=== PATIENT | female | born 1975 | race Caucasian/White ===

== ENCOUNTER 2017-03-29 10:57 | Emergency (ER) | payer OTHER ==
[~2017-03-29] VITALS: Ht 154.9 cm; Wt 94.3 kg
[~2017-03-29 10:57] MED LIST: AMLODIPINE BESY1 TAB PO; BACTRIM DS 8001 TA1 PO; BACTROBAN CREAM15 GM PO; CEPHALEXIN500 M1 PO; CLEOCIN150 MG PO; GOOD NEIGHBOR L10 MG PO; KEFLEX500 M1 PO; LOPRESSOR25 MG PO; LOSARTAN POTASS1 TA5 PO; NAPROSYN500 MG PO; NORCO 5-325 TA1 EACH PO; OMEPRAZOLE D/R20 MG PO; SIMVASTATIN20 MG PO; VITAMIN D50000 I3 PO; ZOFRAN ODT4 MG SL
[2017-03-29] MEDS ORDERED: FUROSEMIDE40 MG PO (11:14)
[2017-03-29] MEDS ORDERED: CITALOPRAM HYDR10 MG PO (11:14)
[2017-03-29] MEDS ORDERED: TRAMADOL HCL50 MG PO (11:15)
[2017-03-29] MEDS ORDERED: KEFLEX500 M1 PO (11:24)
[2017-03-29] MEDS ORDERED: BACTRIM DS 8001 TA1 PO (11:24)
[2017-03-29] MEDS ORDERED: NAPROSYN500 MG PO (11:24)
== END 2017-03-29 13:50 | disposition home or self-care (01) ==
LOC: ED 10:57
DX: L03.011 Cellulitis of right finger (principal); R03.0 Elevated blood-pressure reading, without diagnosis of hypertension; Z79.899 Other long term (current) drug therapy

== ENCOUNTER 2017-05-16 05:56 | Emergency (ER) | payer OTHER ==
[~2017-05-16] VITALS: Ht 157.4 cm; Wt 93.4 kg
[~2017-05-16 05:56] MED LIST changes: +CITALOPRAM HYDR10 MG PO; +FUROSEMIDE40 MG PO; +TRAMADOL HCL50 MG PO
[2017-05-16 06:26] LABS: BASO # 0.1 10*3/uL (0.0-0.1); BASO % 0.8 % (0.0-1.0); EOS # 0.2 10*3/uL (0.0-0.4); EOS % 1.4 % (1.0-4.0); HEMATOCRIT 38.3 % (37.0-47.0); HEMOGLOBIN 12.3 g/dl (12.0-16.0); IG # 0.1 10*3/uL (0.0-0.1); LYMPH # 2.2 10*3/uL (1.3-4.4); LYMPH % 18.3 % (27.0-41.0); MEAN CELL VOLUME 78.6 fl (81.0-99.0); MEAN CORPUSCULAR HGB 25.3 pg (27.0-31.0); MEAN CORPUSCULAR HGB CONC 32.1 g/dl (33.0-37.0); MEAN PLATELET VOLUME 10.3 fl (9.6-12.3); MONO # 0.7 10*3/uL (0.1-1.0); MONO % 6.2 % (3.0-9.0); NEUT # 8.6 10*3/uL (2.3-7.9); NEUT % 72.8 % (47.0-73.0); PLATELET COUNT AUTOMATED 404 10*3/uL (130-400); RED BLOOD COUNT 4.87 10*6/uL (4.10-5.10); RED CELL DISTRI WIDTH 13.7 % (0-14.5); WHITE BLOOD COUNT 11.8 10*3/uL (4.8-10.8)
[2017-05-16 06:47] LABS: BILIRUBIN NEGATIVE (NEGATIVE); BLOOD NEGATIVE (NEGATIVE); CLARITY SL CLOUDY (CLEAR); COLOR YELLOW (YELLOW); GLUCOSE NEGATIVE (NEGATIVE); KETONE NEGATIVE (NEGATIVE); LEUKO ESTERASE 1+ (NEGATIVE); NITRITE NEGATIVE (NEGATIVE); PROTEIN NEGATIVE (NEGATIVE); SPECIFIC GRAVITY 1.015 (1.005-1.030); UROBILINOGEN 0.2 E.U./dl (0.2-1.0)
[2017-05-16 06:48] LABS: ALBUMIN 3.6 gm/dl (3.1-4.5); ALKALINE PHOSPHATASE 96 U/L (45-117); BILIRUBIN, TOTAL 0.2 mg/dl (0.2-1.0); BUN 12 mg/dl (7-24); CARBON DIOXIDE 27 mmol/L (21-32); CHLORIDE 101 mmol/L (98-107); EST GLOM FILT AFRICAN AMERICAN > 60 ml/min; GLUCOSE 135 mg/dL (65-99); POTASSIUM 3.7 mmol/L (3.5-5.1); SGOT/AST 14 IU/L (3-35); SGPT/ALT 21 U/L (12-78); SODIUM 141 mmol/L (136-145); TOTAL PROTEIN 7.5 gm/dL (6.4-8.2)
[2017-05-16 06:55] LABS: WBC 0-2 wbc/hpf (0-5)
[2017-05-16] MEDS ORDERED: PRILOSEC20 M1 PO (07:34)
[2017-05-17 08:08] LABS: URINE REFLEX COMMENT YES (NO)
== END 2017-05-16 07:34 | disposition home or self-care (01) ==
LOC: ED 05:56
PROVIDERS: Emergency Medicine
DX: R10.13 Epigastric pain (principal); R11.10 Vomiting, unspecified; Z79.899 Other long term (current) drug therapy

== ENCOUNTER 2017-08-02 14:27 | Emergency (ER) | payer OTHER ==
[~2017-08-02] VITALS: Ht 157.4 cm; Wt 94.3 kg
[~2017-08-02 14:27] MED LIST changes: +PRILOSEC20 M1 PO
[2017-08-02] MEDS ORDERED: CLINDAMYCIN HC300 MG PO (15:20)
== END 2017-08-02 15:23 | disposition home or self-care (01) ==
LOC: ED 14:27
DX: L02.414 Cutaneous abscess of left upper limb (principal); Z79.899 Other long term (current) drug therapy

== ENCOUNTER 2017-09-05 08:12 | Inpatient (IN) | payer MEDICARE, OTHER ==
[~2017-09-05] VITALS: Ht 152.4 cm; Wt 94.0 kg
--- NOTE | ~2017-09-05 | DS ---
[place], [place] DISCHARGE SUMMARY NAME: JOSE RAFAEL MOODY [facility] #: [id number] UNIT #: [id number] ROOM: 503 DOCTOR: PERLITA AKHTAR MD BIRTHDATE: [birth year] DOS: 09/09/2017 DIAGNOSES: 1. Gallstone pancreatitis. 2. Status post cholecystectomy, stable postoperatively. 3. Benign hypertension. 4. Mixed hyperlipidemia. 5. Major depression, mild, recurrent. MEDICATIONS: The same on discharge, only new prescription given was Ceftin 250 mg twice a day for 5 days, amlodipine, loratadine, omeprazole, metoprolol, Lasix, citalopram, tramadol, hydroxyzine, losartan, lovastatin, sertraline, potassium. The home meds are being all continued. HOSPITAL COURSE: This patient is a 42-year-old. The patient is very well known to us, comes in with complaints of abdominal pain. Amylase and lipase were extremely high with elevated LFTs. CT of the abdomen and pelvis shows gallstones. The patient was placed on IV fluids, kept n.p.o., pain medications were ordered. Dr. Isaac and Dr. Morales were consulted. The patient's LFTs and her pancreatic enzyme levels have slowly come down and normalized. She was taken for cholecystectomy yesterday and the patient has done very well postoperatively. This morning, the patient is stable, is to eat a regular diet and plan is to discharge her to home. PERLITA AKHTAR MD CM:DISCHLISA [id number] PERLITA AKHTAR MD 09/09/17 1541 interface
--- NOTE | ~2017-09-05 | CON ---
[place], [place] REPORT OF CONSULTATION [id number] UNIT #: [id number] ROOM: 503 DOCTOR[facility] BIR[facility] [birth year] DOS: HISTORY OF PRESENT ILLNESS: A 42-year-old who has presented to Emergency Room with cross abdominal pain, nausea, vomiting and I was called for the patient expressing with an element of pancreatitis, abnormal LFTs with lipase of greater than 3000, elevation of GOT, GPT, alkaline phosphatase was noticed to be of AST of 300+, ALT of 500+, alkaline phosphatase 270+ and lipase 3900+ with a total bilirubin within normal limits. Beta hCG was negative. Electrolytes balanced. BUN and creatinine of 13 and 1.05. Glucose 181. CBC differential white blood cells 16.9, H and H of 13 and 43, platelet count 486. Sonogram of the gallbladder was done. Cholelithiasis and thickening of the gallbladder was confirmed. CT scan of the abdomen and evidence of acute pancreatitis was documented. No chronic management except for hypertension she tells me. PAST SURGICAL HISTORY: Denies any surgeries. ALLERGIES: TOBRAMYCIN. MEDICATIONS: Reviewed. FAMILY HISTORY: Noncontributory. SOCIAL HISTORY: She is ____ nonsmoker, nonalcohol consumer. REVIEW OF SYSTEMS: HEENT: Denies double vision, blurred vision. RESPIRATORY: Denies shortness of breath. CARDIOVASCULAR: Denies chest pain. DIGESTIVE SYSTEM: Cross abdominal pain. PHYSICAL EXAMINATION: VITAL SIGNS: Stable. HEENT: Head normocephalic, nontraumatic. Mouth and buccal mucosa benign. NECK: Supple, no thyromegaly, no cervical lymphadenopathy. CHEST: Symmetric anatomy, equal expansion. No wheeze, no rhonchi. HEART: Normal sinus rhythm, no gallop, no murmur. ABDOMEN: Obese, soft. No hepato-organomegaly. Cross abdominal pain. Bowel sounds present. EXTREMITIES: No cyanosis, no pedal edema. NEUROLOGIC: Alert, oriented to time, place, person. INTEGUMENT: Numerous tattoos. IMPRESSION: Gallstone pancreatitis, abnormal LFTs, normal size common duct and elevation of bilirubin. PLAN AND DISCUSSION: The patient requires IV hydration, pain management, n.p.o. status, organized for cholecystectomy possibly on Friday. OTHER ADJUNCTIVE DIAGNOSES: Gastritis and hypertension as dictated in past medical and surgical history. [place], [place] REPORT OF CONSULTATION NAME: JOSE RAFAEL MOODY UNIT #: [id number] ROOM: [facility] DOCTOR: AROLDO MANCILLA MD BIRTHDATE: [birth year] AROLDO MANCILLA MD CM:CONSTR:REPORT OF CONSULTATION 1344 09/05/17 2316 interface
--- NOTE | ~2017-09-05 | WRIGHTHP ---
[place], [place] PATIENT HISTORY AND PHYSICAL EXAM NAME: JOSE RAFAEL MOODY UNIT #: [id number] ROOM: [facility] DOCTOR: PERLITA AKHTAR MD BIRTHDATE: [birth year] DOS: 09/05/2017 HISTORY OF PRESENT ILLNESS: The patient is 42 years old. The patient is very well known to us, comes in with complaints of severe abdominal pain which started a day prior to this admission. The patient states that she has not had any alcohol to drink. Denies having any chest pains or palpitations, does not have any fever or chills. She has nausea and emesis associated with abdominal pain. PAST MEDICAL HISTORY: Significant for; 1. Benign hypertension. 2. Mixed hyperlipidemia. 3. Chronic back pain. 4. Major depression. MEDICATIONS: Amlodipine, citalopram, Lasix, losartan, omeprazole, metoprolol, simvastatin, tramadol. SOCIAL HISTORY: Nonsmoker, does not use any alcohol. PHYSICAL EXAMINATION: VITAL SIGNS: Graphic trend shows pressure 156/96, pulse of 78, respirations 18, temperature 98.8. LUNGS: Diminished breath sounds. No wheezes heard. HEART: Regular. ABDOMEN: Obese, soft, some diffuse tenderness. EXTREMITIES: Without any edema. LABORATORY DATA: White cell count 16.9 on admission, hemoglobin 13.4, hematocrit 42.9, platelets 486. Comprehensive glucose 181, BUN 13, creatinine 1.05, gallbladder screening shows cholelithiasis with wall thickening and diffuse hepatic steatosis. CT of the abdomen and pelvis, acute pancreatitis, and duodenitis, some streaky fat around the mesenteric fat, would be reactive change from the pancreatitis. Amylase was unknown. Lipase was 3956. Liver enzymes; SGOT 333, SGPT 555. ASSESSMENT AND PLAN: 1. Acute pancreatitis, possibly from gallstone. Consultation with Surgery and GI has been obtained. The patient gets IV fluids, n.p.o. status except Dr. Isaac has ordered some clear liquids which I will continue. 2. Benign hypertension. Pressures on the high side, possibly from the n.p.o. status, we will restart some of antihypertensives. [place], [place] PATIENT HISTORY AND PHYSICAL EXAM NAME: JOSE RAFAEL MODOY UNIT #: [id number] ROOM: [facility] DOCTOR: PERLITA AKHTAR MD BIRTHDATE: [birth year] PERLITA AKHTAR MD CM:HISPHYS:PATIENT HISTORY AND PHYSICAL EXAMINATION [phone] PERLITA AKHTAR MD 09/06/17 1159 interface
--- NOTE | ~2017-09-05 | PR ---
[address], [place] PROGRESS NOTE [id number] UNIT #: [id number] ROOM: 503 DOCTOR: PERLITA AKHTAR MD BIRTHDATE: [birth year] DOS: 09/08/2017 SUBJECTIVE: The patient is getting ready to go for her cholecystectomy. She feels good and does not have any complaints. OBJECTIVE: GENERAL: She is awake and alert and oriented. VITAL SIGNS: Blood pressure 132/70, pulse of 86, respirations 14, she is afebrile. LUNGS: Diminished breath sounds, clear. HEART: Regular. ABDOMEN: Obese, soft, nontender. EXTREMITIES: Without any edema. ASSESSMENT AND PLAN: 1. Acute gallstone pancreatitis, clinically improved. Patient will have a cholecystectomy today. 2. Benign hypertension, controlled. PERLITA AKHTAR MD CM:PNTRANS [id number] PERLITA AKHTAR MD 09/09/17 0056 interface
--- NOTE | ~2017-09-05 | PR ---
[place], [place] PROGRESS NOTE NAME: JOSE RAFAEL MOODY [facility] #: [id number] UNIT #: [id number] ROOM: 503 DOCTOR: PERLITA AKHTAR MD BIRTHDATE: [birth year] DOS: SUBJECTIVE: The patient seems okay, does not have any complaints today. OBJECTIVE: VITAL SIGNS: Blood pressure is 138/64, pulse of 72, respirations 18, temperature 98.6. LUNGS: Clear. HEART: Regular. ABDOMEN: Obese, soft, minimal diffuse tenderness. EXTREMITIES: Without any edema. LABORATORY DATA: This morning shows WBC count is 17.9, it came down from 20.2. Liver enzymes have come down. Amylase has normalized. Lipase is down to 675. ASSESSMENT AND PLAN: 1. Gallstone pancreatitis, on IV fluids and n.p.o. status. Dr. Isaac and Dr. Morales are seeing the patient 2. Benign hypertension, controlled. Continue pain meds and IV fluids. Repeat labs will be ordered for tomorrow. Hopefully will undergo cholecystectomy soon. PERLITA AKHTAR MD CM:PNTRANS [id number] PERLITA AKHTAR MD 09/07/17 1525 interface
--- NOTE | ~2017-09-05 | PR ---
[place], [place] PROGRESS NOTE NAME: JOSE RAFAEL MOODY [facility] #: [id number] UNIT #: [id number] ROOM: 503 DOCTOR: PERLITA AKHTAR MD BIRTHDATE: [birth year] DOS: SUBJECTIVE: The patient is doing fine without any complaints. Denies any chest pains, palpitations or shortness of breath. PHYSICAL EXAMINATION: GENERAL: The patient is awake and alert and oriented. LUNGS: Diminished breath sounds. HEART: Regular. ABDOMEN: Obese, soft with recent lesions from laparoscopic cholecystectomy looking intact and not infected. EXTREMITIES: Without any edema. ASSESSMENT AND PLAN: 1. Gallstone pancreatitis, status post cholecystectomy. Postoperatively stable without any new problems. 2. Benign hypertension, controlled. The plan is to discharge her to home today. PERLITA AKHTAR MD CM:PNTRANS [phone] PERLITA AKHTAR MD 09/09/17 1217 interface
[~2017-09-05 08:12] MED LIST changes: +CLINDAMYCIN HC300 MG PO
[2017-09-05 08:19] VITALS: BP 161/106
[2017-09-05 08:47] LABS: HEMATOCRIT 42.9 % (37.0-47.0); HEMOGLOBIN 13.4 g/dl (12.0-16.0); MEAN CELL VOLUME 76.1 fl (81.0-99.0); MEAN CORPUSCULAR HGB 23.8 pg (27.0-31.0); MEAN CORPUSCULAR HGB CONC 31.2 g/dl (33.0-37.0); MEAN PLATELET VOLUME 10.6 fl (9.6-12.3); PLATELET COUNT AUTOMATED 486 10*3/uL (130-400); RED BLOOD COUNT 5.64 10*6/uL (4.10-5.10); RED CELL DISTRI WIDTH 15.3 % (0-14.5); WHITE BLOOD COUNT 16.9 10*3/uL (4.8-10.8)
[2017-09-05 09:00] LABS: ALBUMIN 3.7 gm/dl (3.1-4.5); ALKALINE PHOSPHATASE 276 U/L (45-117); BUN 13 mg/dl (7-24); CHLORIDE 100 mmol/L (98-107); CREATININE 1.05 mg/dL (0.55-1.02); POTASSIUM 3.9 mmol/L (3.5-5.1); SGOT/AST 333 IU/L (3-35); SGPT/ALT 555 U/L (12-78); SODIUM 136 mmol/L (136-145)
[2017-09-05 09:02] LABS: LIPASE 3956 U/L (73-393)
[2017-09-05 09:05] LABS: PLATELET SUFFICIENCY HIGH (NORMAL); TOTAL CELLS COUNTED 100 #CELLS
--- NOTE | 2017-09-05 10:10 | NUR ---
2 RNS' HAVE BEEN UNABLE TO INSERT AN IV INTO THIS PT. DR ELLISON IS AWARE. PT HAS REFUSED A CENTRAL LINE. DR ELLISON HAS ORDERED A PICC LINE. PT WILL BE ADMITTED. REPORT TO BE CALLED. THERE HAS BEEN NO EMESIS. PT WILL BE ADMITTED. REPORT TO BE CALLED. KRYSTA BARROSO
--- NOTE | 2017-09-05 11:40 | NUR ---
Time: 1139 A 42 year old female admitted to 5E under services of DR. GIOVANA POLO,PERLITA. Pt. arrived via stretcher from ER. Chief complaint: abdominal pain. ANGEL ROCHA
[2017-09-05 11:54] VITALS: BP 160/98
--- NOTE | 2017-09-05 12:08 | NUR ---
CONSULT CALLED TO DR. MANCILLA, ORDER FOR LABS TOMORROW. HE WILL SEE PATIENT TODAY
--- NOTE | 2017-09-05 12:17 | NUR ---
DR. WILEY HERE TO SEE PATIENT FOR NEW CONSULT. HE DISCUSSED PATIENT WITH DR. MANCILLA
[2017-09-05 16:31] VITALS: BP 154/101
--- NOTE | 2017-09-05 18:08 | NUR ---
pt wants flu shot this admission however does not want it today. placed order for flu shot tomorrow
[2017-09-05 19:00] VITALS: BP 154/90
--- NOTE | 2017-09-05 20:00 | NUR ---
SLEEPING. RESPIRATIONS EASY. IV FLUIDS MAINTAINED
[2017-09-05 20:22] VITALS: BP 142/88; BP 149/93
--- NOTE | 2017-09-05 20:38 | NUR ---
REQUESTED AND RECEIVED DILAUDID AND ZOFRAN IV PER PRN ORDER FOR C/O ABD PAIN RATING A 9 AND NAUSEA. CALL LIGHT WITHIN REACH. WILL MONITOR FOR EFFECTIVENESS
--- NOTE | 2017-09-05 22:00 | NUR ---
EARLIER MEDS EFFECTIVE. RESTING WITH EYES CLOSED. RESPIRATIONS EASY. IV FLUIDS MAINTAINED
[2017-09-06] VITALS: BP 156/96
--- NOTE | 2017-09-06 04:25 | NUR ---
PATIENT MEDICATED SLOWLY WITH DILAUDID AND ZOFRAN PER PRN ORDER FOR C/O PAIN AND NAUSEA. RATED PAIN A 7/10 WITH 10 BEING THE WORST. SEE EMAR. REINFORCED USE OF CALL LIGHT.
[2017-09-06 06:23] LABS: BASO # 0.1 10*3/uL (0.0-0.1); BASO % 0.3 % (0.0-1.0); EOS % 0.1 % (1.0-4.0); HEMATOCRIT 41.5 % (37.0-47.0); HEMOGLOBIN 13.1 g/dl (12.0-16.0); LYMPH # 1.4 10*3/uL (1.3-4.4); MEAN CELL VOLUME 77.6 fl (81.0-99.0); MEAN CORPUSCULAR HGB 24.5 pg (27.0-31.0); MEAN CORPUSCULAR HGB CONC 31.6 g/dl (33.0-37.0); MEAN PLATELET VOLUME 10.8 fl (9.6-12.3); MONO # 1.3 10*3/uL (0.1-1.0); MONO % 6.5 % (3.0-9.0); NEUT # 17.3 10*3/uL (2.3-7.9); NEUT % 85.5 % (47.0-73.0); PLATELET COUNT AUTOMATED 402 10*3/uL (130-400); RED BLOOD COUNT 5.35 10*6/uL (4.10-5.10); RED CELL DISTRI WIDTH 15.7 % (0-14.5); WHITE BLOOD COUNT 20.2 10*3/uL (4.8-10.8)
[2017-09-06 06:32] LABS: ALBUMIN 3.1 gm/dl (3.1-4.5); ALKALINE PHOSPHATASE 231 U/L (45-117); BUN 10 mg/dl (7-24); CHLORIDE 101 mmol/L (98-107); CREATININE 0.89 mg/dL (0.55-1.02); POTASSIUM 3.8 mmol/L (3.5-5.1); SGOT/AST 126 IU/L (3-35); SGPT/ALT 339 U/L (12-78); SODIUM 135 mmol/L (136-145)
[2017-09-06 06:46] LABS: LIPASE 1808 U/L (73-393)
[2017-09-06 08:00] VITALS: BP 164/66
--- NOTE | 2017-09-06 08:00 | NUR ---
PT C/O PAIN. DILAUDID NOT DUE YET. SPOKE TO DR AKHTAR AND SHE STATED THAT INCREASING HER PAIN MEDS IS NOT NECESSARY AT THIS TIME.
--- NOTE | 2017-09-06 10:05 | NUR ---
DR MANCILLA CALLED WITH LAB RESULTS REQUESTED. NEW ORDER FOR ZOSYN 3.375MG IV QID AND CBC AND LFT'S IN AM. ALSO TO NOTIFY SURGEON THAT IS ON ABOUT THE LAB RESULTS.
--- NOTE | 2017-09-06 11:58 | NUR ---
IV DILAUDID GIVEN FOR C/O PAIN OF 8/10 TO ABDOMEN. IV ZOFRAN GIVEN FOR C/O NAUSEA. WILL CONT TO MONITOR. CALL LIGHT IN REACH.
--- NOTE | 2017-09-06 12:58 | NUR ---
DILAUDID AND ZOFRAN EFF AT THIS TIME. WILL CONT TO MONITOR. CALL LIGHT IN REACH.
[2017-09-06 13:00] VITALS: BP 144/92
--- NOTE | 2017-09-06 13:46 | NUR ---
NO CALLBACK RECEIVED BY DR MANCILLA OF YET. PER DR EDWARDS REQUEST CALL PLACED TO DR RAIN TO ASK FOR DIET ADVANCEMENT. DR RAIN WAS READ THE RESULTS OF FLAT PLATE AND LABS. HE DID GIVE NEW ORDERS FOR CLEAR LIQUID DIET.
--- NOTE | 2017-09-06 13:46 | NUR ---
PT DR RAIN SINCE DR MANCILLA ADDED ZOSYN THEN THE MEFOXIN CAN BE D/C'D. ALSO UPDATED HIM ON LAB RESULTS.
[2017-09-06 16:00] VITALS: BP 136/85
--- NOTE | 2017-09-06 17:49 | NUR ---
PT GIVEN IV DILAUDID FOR C/O PAIN OF 8/10 AND IV ZOFRAN FOR C/O NAUSEA. WILL CONT TO MONITOR. CALL LIGHT IN REACH.
--- NOTE | 2017-09-06 18:49 | NUR ---
IV DILAUDID AND ZOFRAN EFF AT THIS TIME. WILL CONT TO MONITOR. CALL LIGHT IN REACH.
[2017-09-06 20:00] VITALS: BP 134/84
--- NOTE | 2017-09-06 20:00 | NUR ---
PATIENT LYING IN BED ON LEFT SIDE. ALERT AND ORIENTED. NO COMPLAINTS VOICED AT THIS TIME. LUNGS CLEAR, NO COUGH, NO EDEMA NOTED. PATIENT WITH PICCLINE IN RIGHT AC, INTACT, WITH IV FLUIDS RUNNING. PATIENT STATED THAT SHE HAD BOWEL MOVEMENT TODAY. NO NAUSEA OR VOMITING NOTED AT THIS TIME.
[2017-09-07] VITALS: BP 150/95
--- NOTE | 2017-09-07 02:13 | NUR ---
PATIENT GIVEN DILAUDID AT 0205 PER REQUEST FOR ABDOMINAL PAIN, 07/03.
--- NOTE | 2017-09-07 03:00 | NUR ---
PATIENT RESTING IN BED, EYES CLOSED, PAIN MEDICATION APPEARS TO BE EFFECTIVE.
--- NOTE | 2017-09-07 03:21 | NUR ---
24 HR chart check completed.
--- NOTE | 2017-09-07 03:44 | NUR ---
PATIENT LYING IN BED EYES CLOSED. NO S/S OF DISTRESS. IV INTACT WITH FLUIDS, NO INFILTRATION NOTED.
[2017-09-07 06:19] LABS: BASO # 0.1 10*3/uL (0.0-0.1); BASO % 0.4 % (0.0-1.0); EOS # 0.1 10*3/uL (0.0-0.4); EOS % 0.7 % (1.0-4.0); HEMATOCRIT 40.6 % (37.0-47.0); HEMOGLOBIN 12.5 g/dl (12.0-16.0); LYMPH % 11.1 % (27.0-41.0); MEAN CORPUSCULAR HGB 23.7 pg (27.0-31.0); MEAN CORPUSCULAR HGB CONC 30.8 g/dl (33.0-37.0); MEAN PLATELET VOLUME 11.1 fl (9.6-12.3); MONO # 1.3 10*3/uL (0.1-1.0); MONO % 7.2 % (3.0-9.0); NEUT # 14.3 10*3/uL (2.3-7.9); NEUT % 80.1 % (47.0-73.0); PLATELET COUNT AUTOMATED 351 10*3/uL (130-400); RED BLOOD COUNT 5.27 10*6/uL (4.10-5.10); RED CELL DISTRI WIDTH 15.2 % (0-14.5); WHITE BLOOD COUNT 17.9 10*3/uL (4.8-10.8)
[2017-09-07 06:43] LABS: ALBUMIN 2.8 gm/dl (3.1-4.5); BILIRUBIN, DIRECT 0.3 mg/dL (0.0-0.2); TOTAL PROTEIN 7.9 gm/dL (6.4-8.2)
[2017-09-07 08:00] VITALS: BP 138/84
--- NOTE | 2017-09-07 09:18 | NUR ---
PT MEDICATED WITH ZOFRAN FOR C/O NAUSEA. WILL MONITOR
--- NOTE | 2017-09-07 11:05 | NUR ---
spoke with dr roberts regarding consult no new orders at this time
--- NOTE | 2017-09-07 11:06 | NUR ---
dr roberts called with pt lab results for today
[2017-09-07 12:00] VITALS: BP 124/81
--- NOTE | 2017-09-07 12:25 | NUR ---
PT REQUESTED AND GIVEN DILAUDID FOR C/O ABD PAIN. PT RATES PAIN 7/10. WILL MONITOR
--- NOTE | 2017-09-07 12:30 | NUR ---
SPOKE WITH DR GUTIERREZ REGARDING PT HAVING POSSIBLE SURGERY YRN. DR GUTIERREZ STATED THAT PLAN IS FOR PT TO HAVE SURGERY YRN DEPENDING LAB RESULTS, OR POSS COULD BE FRIDAY. STATES THAT HE WILL PUT ORDERS IN LATER WHEN HE IS AT A COMPUTER
--- NOTE | 2017-09-07 15:00 | NUR ---
PT RESTING IN BED, EYES CLOSED. DILAUDID APPEARS EFFECTIVE, WILL MONITOR
[2017-09-07 16:00] VITALS: BP 129/82
--- NOTE | 2017-09-07 17:55 | NUR ---
PT MEDICATED WITH ZOFRAN FOR C/O NAUSEA. WILL MONITOR
--- NOTE | 2017-09-07 18:43 | NUR ---
DONNA EFFECTIVE, WILL MONITOR
[2017-09-07 20:00] VITALS: BP 120/76
--- NOTE | 2017-09-07 21:00 | NUR ---
PATIENT REQUESTED PAIN MEDICATION FOR ABDOMINAL PAIN, 07/03. GIVEN PER MED. ORDER.
--- NOTE | 2017-09-07 21:50 | NUR ---
PATIENT STATED THAT PAIN HAD EASED TO 5/10. MEDICATION EFFECTIVE.
--- NOTE | 2017-09-07 23:35 | NUR ---
24 HR chart check completed.
[2017-09-08] VITALS (11 sets, daily range): BP systolic 101–148; BP diastolic 62–105
[2017-09-08 06:27] LABS: BASO # 0.1 10*3/uL (0.0-0.1); BASO % 0.6 % (0.0-1.0); EOS # 0.5 10*3/uL (0.0-0.4); EOS % 3.6 % (1.0-4.0); HEMATOCRIT 37.2 % (37.0-47.0); HEMOGLOBIN 11.6 g/dl (12.0-16.0); LYMPH # 2.1 10*3/uL (1.3-4.4); MEAN CELL VOLUME 77.8 fl (81.0-99.0); MEAN CORPUSCULAR HGB 24.3 pg (27.0-31.0); MEAN CORPUSCULAR HGB CONC 31.2 g/dl (33.0-37.0); MEAN PLATELET VOLUME 10.7 fl (9.6-12.3); MONO % 7.3 % (3.0-9.0); NEUT # 10.1 10*3/uL (2.3-7.9); NEUT % 73.1 % (47.0-73.0); PLATELET COUNT AUTOMATED 354 10*3/uL (130-400); RED BLOOD COUNT 4.78 10*6/uL (4.10-5.10); RED CELL DISTRI WIDTH 15.1 % (0-14.5); WHITE BLOOD COUNT 13.7 10*3/uL (4.8-10.8)
[2017-09-08 06:59] LABS: ALBUMIN 2.6 gm/dl (3.1-4.5); BUN 9 mg/dl (7-24); CHLORIDE 99 mmol/L (98-107); CREATININE 0.84 mg/dL (0.55-1.02); LIPASE 434 U/L (73-393); POTASSIUM 3.4 mmol/L (3.5-5.1); SGPT/ALT 136 U/L (12-78); SODIUM 138 mmol/L (136-145)
[2017-09-08 07:00] LABS: ALKALINE PHOSPHATASE 167 U/L (45-117); SGOT/AST 18 IU/L (3-35); TOTAL PROTEIN 7.5 gm/dL (6.4-8.2)
--- NOTE | 2017-09-08 08:05 | NUR ---
PT OFF FLOOR TO OR FOR NAWAF LLOYD WITH DR RAIN.REPORT GIVEN TO CHIO DURAN.
--- NOTE | 2017-09-08 08:30 | NUR ---
ANALYST FOOD AND BEVERAGE VS. PT OFF FLOOR.
--- NOTE | 2017-09-08 11:35 | NUR ---
REPORT RECIEVED FROM JAYSHREE SAMAYOA RN. PT BACK TO FLOOR. VITALS OBTAINED. PLACED ON 2LNC SPO2 93%. RESPS STILL SHALLOW. AROUSES EASILY. MEDS GIVEN PER MAR. FAMILY AT BEDSIDE. PT VOICES NO C/O AT THIS TIME. CALL LIGHT IN REACH.
--- NOTE | 2017-09-08 11:54 | NUR ---
Discharge instructions reviewed with patient/family. Patient receptive and verbalizes understanding. Follow-up care arranged. Written instructions given to patient/family.HEPLOCK REMOVED. RUPA DANGELO
--- NOTE | 2017-09-08 16:09 | NUR ---
NORCO 5/325 MG GIVEN FOR C/O ADB TENDERNESS, 06/02.
[2017-09-08] MEDS ORDERED: KLOR-CON SPRIN10 MEQ PO (16:45)
[2017-09-08] MEDS ORDERED: HYDROXYZINE HCL25 M1 PO (16:47)
[2017-09-08] MEDS ORDERED: LOSARTAN POTAS100 MG PO (16:49)
--- NOTE | 2017-09-08 16:51 | NUR ---
MED RECONCILIATION COMPLETED VIA FAX FROM [facility]. MED LIST ON FILE IN PT'S CHART.
--- NOTE | 2017-09-08 16:53 | NUR ---
PT UP AND VOIDED 200 CC OF YELLOW URINE. PT ALSO AMBULATED HALLWAYS WITHOUT DIFFICULTY.TOLERATED WELL. BACK TO CHAIR AT BEDSIDE WITH ICE PACK IN PLACE.
--- NOTE | 2017-09-08 20:00 | NUR ---
ASSISTED TO BR X 1.
--- NOTE | 2017-09-08 20:50 | NUR ---
RESTING IN BED. RESPIRATIONS EASY. LUNGS DIMINISHED, CLEAR. PULSE OX 93% RA. ABD SOFTLY DISTENDED WITH HYPOACTIVE BOWEL SOUNDS. SURGICAL SITES X 4 NOTED WITH GLUE, INTACT AND WELL APPROXIMATED. +FLATUS AND CLAIMS POST-OP BM, TOLERATING DIET. REQUESTED AND RECEIVED NORCO PER PRN ORDER FOR COMPLAINTS OF ABD "SORENESS" RATING A 6. IV FLUIDS INFUSING PER ORDER. CALL LIGHT WITHIN REACH. WILL MONITOR
--- NOTE | 2017-09-08 22:00 | NUR ---
earlier meds appear effective. resting with eyes closed. respirations easy. iv fluids maintained. call light within reach
[2017-09-09] VITALS: BP 103/67
--- NOTE | 2017-09-09 | NUR ---
RESTING WITH EYES CLOSED. RESPIRATIONS EASY. VSS. IV FLUIDS MAINTAINED. CALL LIGHT WITHIN REACH
[2017-09-09] MEDS ORDERED: LOVASTATIN20 MG PO (01:22)
[2017-09-09] MEDS ORDERED: ZOLOFT100 MG PO (01:23)
[2017-09-09] MEDS ORDERED: POTASSIUM CHLO10 MEQ PO (01:27)
--- NOTE | 2017-09-09 01:48 | NUR ---
REQUESTED AND RECEIVED NORCO PER PRN ORDER FOR COMPLAINTS OF ABD SORENESS. WILL MONITOR FOR EFFECTIVENESS
--- NOTE | 2017-09-09 03:00 | NUR ---
EARLIER MED APPEARS EFFECTIVE, SLEEPING. RESPIRATIONS EASY. IV FLUIDS MAINTAINED
--- NOTE | 2017-09-09 05:50 | NUR ---
REQUESTED AND RECEIVED NORCO PER PRN ORDER FOR COMPLAINTS OF ABD SORENESS. CALL LIGHT WITHIN REACH. WILL MONITOR FOR EFFECTIVENESS
[2017-09-09 08:00] VITALS: BP 108/66
[2017-09-09] MEDS ORDERED: CEFUROXIME AXE250 MG PO (08:53)
--- NOTE | 2017-09-09 11:04 | NUR ---
PATIENT REQUESTED VICODIN AT 1015 FOR BD. PAIN 06/02, GIVEN PER ORDER.
[2017-09-09 12:00] VITALS: BP 140/91
[2017-09-09] MEDS ORDERED: NORCO 5/325 PO (12:40)
--- NOTE | 2017-09-09 13:10 | NUR ---
Discharge instructions reviewed with patient/family. Patient receptive and verbalizes understanding. Follow-up care arranged. Written instructions given to patient/family. KAYLEIGH MULLER
== END 2017-09-09 11:31 | disposition home or self-care (01) | DRG 418 ==
LOC: ED 08:12 → EDHOLD 09:57 → 5E 09:57
PROVIDERS: Internal Medicine Gastroenterology; Student in an Organized Health Care Education/Training Program; ADMIT Internal Medicine
PROC: 0FT44ZZ Resection of Gallbladder, Percutaneous Endoscopic Approach (ICD-10-PCS; principal; 2017-09-08)
DX: K85.10 Biliary acute pancreatitis without necrosis or infection (principal); K80.10 Calculus of gallbladder with chronic cholecystitis without obstruction; F33.0 Major depressive disorder, recurrent, mild; I10 Essential (primary) hypertension; E78.2 Mixed hyperlipidemia; K21.9 Gastro-esophageal reflux disease without esophagitis; G89.29 Other chronic pain; M54.9 Dorsalgia, unspecified; Z88.1 Allergy status to other antibiotic agents; Z86.14 Personal history of Methicillin resistant Staphylococcus aureus infection; Z79.899 Other long term (current) drug therapy